=== PATIENT | female | born 1995 ===

== ENCOUNTER 2017-12-23 14:40 | Inpatient (IN) ==
--- OUTSIDE RECORDS SUMMARY | 2017-12-23 14:45 | External Medical Summary | Continuity of Care Document ---
:1995 Author Organization [facility] Address [address] [place], [place] [id number] Phone Allergies, Adverse Reactions, Alerts Substance Reaction Severity Status No Known Drug Allergies Unknown Active Medications Medication Instructions Dosage Effective Dates Status Comments (start - stop) 28 mg take 1 tablet by Not Available - Active iron-800 mcg oral route every tablet day Problems Condition Effective Dates (start - stop) Clinical Status Oth related conditions, - third trimester Encounter for suprvsn of normal - , third trimester 28 weeks gestation of - Oth viral diseases complicating - , second trimester Encounter for suprvsn of normal - , second trimester 25 weeks gestation of - Abnormal glucose complicating - 30 weeks gestation of - Herpes Simplex Virus Active Procedures Procedure Date OB Visit No Charge Infct antign, chlamydia trac, ampl Neisseria Gonorrhea, Amplified DNA Results Test Name Date and Time Measure Units Reference Range Abnormal Flag Comments Panel Description: CBC With Differential/Platelet WBC 10:22:00 9.7 x10E3/uL 3.4-10.8 RBC 10:22:00 3.94 x10E6/uL 3.77-5.28 Hemoglobin 10:22:00 11.8 g/dL 11.1-15.9 Hematocrit 10:22:00 36.3 % 34.0-46.6 MCV 10:22:00 92 fL 79-97 MCH 10:22:00 29.9 pg 26.6-33.0 MCHC 10:22:00 32.5 g/dL 31.5-35.7 RDW 10:22:00 13.1 % 12.3-15.4 Platelets 10:22:00 268 x10E3/uL 150-379 Neutrophils 10:22:00 61 % Not Estab. Lymphs 10:22:00 32 % Not Estab. Monocytes 10:22:00 5 % Not Estab. Eos 10:22:00 2 % Not Estab. Basos 10:22:00 0 % Not Estab. Immature Cells 10:22:00 Neutrophils (Absolute) 10:22:00 5.9 x10E3/uL 1.4-7.0 Lymphs (Absolute) 10:22:00 3.1 x10E3/uL 0.7-3.1 Monocytes(Absolute) 10:22:00 0.5 x10E3/uL 0.1-0.9 Eos (Absolute) 10:22:00 0.2 x10E3/uL 0.0-0.4 Baso (Absolute) 10:22:00 0.0 x10E3/uL 0.0-0.2 Immature Granulocytes 10:22:00 0 % Not Estab. Immature Grans (Abs) 10:22:00 0.0 x10E3/uL 0.0-0.1 NRBC 10:22:00 Hematology Comments: 10:22:00 Panel Description: Glucose [Mass/volume] in Serum or Plasma --1 hour post 50 g glucose PO Gestational Diabetes Screen 10:22:00 156 mg/dL 65-135 H Panel Description: Bacteria identified in Urine by Culture Urine Culture, Routine 10:49:00 Final report Result 1 10:49:00 No growth Panel Description: GC/CT Amplified Probe Chlamydia Trachomatis RNA, TMA 10:31:46 Negative Negative N Neisseria Gonorrhoeae RNA, TMA 10:31:46 Negative Negative N Advance Directives Directive Yes / No Effective Date File Name Unknown Encounters Encounter Practice Location Reason(s) Diagnoses Date Provider Care Team Description For Visit Members Associates [facility] Abnormal glucose October- Mack Referring In Womens complicating 1-201 Shae. Provider: Jaylene ALEXANDER, [email or web address] weeks 8 700 Shae Mack [address] gestation of Medical K, 700 1522, [facility] [place], , [facility] [place], 120, [place] 120, [id number], [place], [place], [place], tel:[phone]. , [place]. tel: tel: [phone] Associates Jorge Oth Apr-2 Mack In Womens related conditions, 6-201 Shae. Jaylene ALEXANDER, third 8 700 [address] [facility] 1522, [facility] normal , [place] Ontiveros, third [email or web address] 120, [id number], weeks gestation of [facility] [place], tel: [phone] , [place]. tel: [phone] Howard [place] Ot viral diseases Apr-0 Mack In Womens complicating 3-201 Shae. Jaylene ALEXANDER, , second 8 700 [address] [facility] 1522, for suprvsn [facility], normal , [place] Ontiveros, second [email or web address] 120, [id number], weeks gestation of [facility] [place], tel: [phone] , [place]. tel: [phone] Family History Family Member Diagnosis Age At Onset Mother Diabetes Sister Diabetes Father Alcoholism Sister Thyroid Disorder Mother Hypertension No family history of Venous Thrombosis No family history of Pulmonary Embolism Maternal Grandfather Stroke Maternal Grandmother Diabetes Maternal Grandmother Stroke Mother Breast Cancer Immunizations Vaccine Date Status Comments Tdap completed Source: New Immunization Record Influenza, injectable, completed Source: Other Provider quadrivalent, preservative free, 3 yrs or older Tdap completed Source: Other Provider Payers Payer name Insurance type Covered democrat ID Authorization(s) [place] [place] Medicaid MC [id number] [place] - Medicaid MC [id number] Social History Type Description Quantity Date Captured Alcohol Use Details No Caffeine Use Details Unknown Tobacco Use Status Unknown Smoking Status Never smoker Vital Signs Date / Height Weight BMI Pulse Blood Temperature Respiratory Body Head BMI Time: Rate Pressure Rate Surface Circumference percentile Area 30.4 -2017 7 9:14 kg/m AM eter (2) 167.70 30.6 110/74 -2018 lbs 7 mm[Hg] 9:30 kg/m AM eter (2) Chief Complaint And Reason For Visit Unknown Chief Complaint And Reason For Visit Reason For Referral Reason For Referral Unknown Plan Of Care Date Type Action Status Appointment Asia Ames BOOKED Date Type Problem Goal Intervention Status Start Date Unknown. History Of Present Illness Encounter Date Complaint History Of Present Illness This patient has no known history of present illness Functional Status Encounter Date Functional Assessment Cognitive Assessment Unknown Medications Administered Medication Instructions Dosage Effective Dates (start - stop) Status Comments Drug Treatment Unknown Instructions Date Instruction Additional Information gestational glucose lab screening
--- OUTSIDE RECORDS SUMMARY | 2017-12-23 14:45 | External Medical Summary | Encounter Summary ---
:1995 Author Organization [facility] Address [address] [place] [address] Care Team Providers Name Role Phone Matthew Tony MD Supervisor Weaving Encounter Details Date Type Department Care Team Description 09/29/2017 [facility] MULTIPLE TESTS Link, Onbase [place], [place] Social History Tobacco Use Types Packs/Day Years Used Date Never Smoker Smokeless Tobacco: Never Used Alcohol Use Drinks/Week oz/Week Comments No not while Sex Assigned at Date Recorded Not on file as of this encounter Plan of Treatment Not on fileas of this encounter Visit Diagnoses Not on filein this encounter
--- OUTSIDE RECORDS SUMMARY | 2017-12-23 14:45 | External Medical Summary | Clinical Summary ---
:1995 Author Organization [facility] Address [address] [place] [address] Care Team Providers Name Role Phone Matthew Tony MD Service Team Leader Allergies No Known Allergies Current Medications Prescription Sig. Disp. Refills Start Date End Date Status Vit-Fe Take 1 tablet by 90 tablet 3 06/17/2017 Active Fumarate-FA ( mouth daily. VITAMIN) 27-0.8 MG TABSIndications: 11 weeks gestation of Active Problems Patient Care Coordination Note Hosp: SV Dr. Dixon FOB: Lopez txr care from [place], records rec'ed Subchorionic hemorrhage at 17 wks HSV pos in [place] Currently Estimated Date of Delivery Comments Yes 01/02/2018 Based on Ultrasound No known active problems Resolved Problems Problem Noted Date Resolved Date 02/23/2015 05/21/2016 Encounters Date Type Specialty Care Team Description 09/29/2017 [facility] Link, Onbase from Last 3 Months Immunizations Name Dates Previously Given Next Due INFLUENZA IIV4 PF (FLULAVAL,FLUZONE,FLUARIX,AFLURIA 06/17/2017 QUAD) Tdap 03/08/2015 Family History Medical History Relation Name Comments Alcohol abuse Father Diabetes Maternal Grandfather Stroke Maternal Grandfather Diabetes Maternal Grandmother Stroke Maternal Grandmother Diabetes Mother Hypertension Mother Relation Name Status Comments Father Alive Maternal Grandfather Alive Maternal Grandmother Alive Mother Alive Social History Tobacco Use Types Packs/Day Years Used Date Never Smoker Smokeless Tobacco: Never Used Alcohol Use Drinks/Week oz/Week Comments No not while Currently Estimated Date of Delivery Comments Yes 01/02/2018 Based on Ultrasound Sex Assigned at Date Recorded Not on file Last Filed Vital Signs Vital Sign Reading Time Taken Blood Pressure 116/70 08/12/2017 9:35 AM 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 Pulse 82 07/23/2017 6:16 PM 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 Temperature 37.2 C (98.9 F) 07/23/2017 4:30 PM 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 Respiratory Rate 18 07/23/2017 6:16 PM 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 Oxygen Saturation 100% 07/23/2017 6:16 PM 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 Inhaled Oxygen Concentration - - Weight 72.6 kg (160 lb) 08/12/2017 9:35 AM 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 Height 157.5 cm (5' 2") 07/23/2017 4:30 PM 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 Body Mass Index 29.26 08/12/2017 9:35 AM 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 Plan of Treatment Health Maintenance Due Date Last Done Comments HPV Vaccines (1 of 3 - Female 11/27/2006 3-dose series) Varicella Vaccines (1 of 2 - 11/27/2008 2-dose adolescent series) MenB Vaccine (Bexsero) (1 of 2) 2011 Influenza Vaccine (#1) 2018 06/17/2017, 04/28/2011, 04/28/2011, Additional history exists CERVICAL CANCER SCREENING 06/17/2020 06/17/2017 DTaP,Tdap,and Td Vaccines (2 - 03/08/2025 03/08/2015 Td) Results Not on filefrom Last 3 Months
--- OUTSIDE RECORDS SUMMARY | 2017-12-23 14:45 | External Medical Summary | Continuity of Care Document ---
:1995 Author Organization [facility] Address [address] [place], [place] [id number] Phone Allergies, Adverse Reactions, Alerts Substance Reaction Severity Status No Known Drug Allergies Unknown Active Medications Medication Instructions Dosage Effective Dates Status Comments (start - stop) acyclovir 400 mg take 1 tablet - Active tablet (400MG) by ORAL route every 8 hours until delivery 28 mg take 1 tablet by Not Available - Active iron-800 mcg oral route every tablet day Problems Condition Effective Dates (start - stop) Clinical Status Other viral diseases complicating - , third trimester Encounter for suprvsn of normal - , third trimester 35 weeks gestation of - Oth viral diseases complicating - , second trimester Encounter for suprvsn of normal - , second trimester 25 weeks gestation of - Oth related conditions, - third trimester Encounter for suprvsn of normal - , third trimester 28 weeks gestation of - Abnormal glucose complicating - 30 weeks gestation of - Encounter for suprvsn of normal - , third trimester 38 weeks gestation of - Encounter for suprvsn of normal - , third trimester 36 weeks gestation of - Encounter for suprvsn of normal - , third trimester 33 weeks gestation of - Encounter for suprvsn of normal - , third trimester 37 weeks gestation of - Herpes Simplex Virus Active Procedures Procedure Date OB Visit No Charge Results Test Name Date and Time Measure Units Reference Range Abnormal Flag Comments Unknown Advance Directives Directive Yes / No Effective Date File Name Unknown Encounters Encounter Practice Location Reason(s) Diagnoses Date Provider Care Team Description For Visit Members Howard [place] Encounter for Willem-0 Mack In Womens suprvsn of normal 3-201 Shae. [facility], , third 8 700 [address] [email or web address] weeks Medical 1522, gestation of [facility], [place] Ontiveros, 120, [id number], [place], [place], tel:[phone] , [place]. tel: [phone] Howard [place] Encounter for Wei-2 Mack In Womens suprvsn of normal 6-201 Shae. [facility], , third 8 700 [address] [email or web address] weeks Medical 1522, gestation of [facility] [place] Ontiveros, 120, [id number], [place], [place], tel:[phone] , [place]. tel: [phone] Howard [place] Encounter for Wei-1 Mack In Womens suprvsn of normal 9-201 Shae. [facility], , third 8 700 [address] [email or web address] weeks Medical 1522, gestation of [facility], [place] Ontiveros, 120, [id number], [place], [place], tel:[phone] , [place]. tel: [phone] Howard [place] Other viral Wei-1 Mack In Womens diseases 2-201 Shae. [facility], complicating 8 700 PO [address] , third Medical 1522, trimesterEncounter [facility], for suprvsn of [place] Ontiveros, normal , 120, [id number], third [email or web address] [place], [place] weeks gestation of [place], tel:[phone] , [place]. tel: [phone] Howard [place] Encounter for May-2 Mack In Womens suprvsn of normal 9-201 Shae. [facility], , third 8 700 [address] [email or web address] weeks Medical 1522, gestation of [facility], [place] Ontiveros, 120, [id number], [place], tel:[phone] , [place]. tel: [phone] Howard [place] Abnormal glucose May-1 Mack Referring In Womens complicating 1-201 Shae. Provider: Health CATHERINE, [email or web address] weeks 8 700 Shae Mack PO Box gestation of Medical K, 700 1522, Center [facility] [address] Gianna, [facility] [place], 120, [place] 120, [id number], [place], [place], tel: [phone]. , [place]. tel: tel: [phone] Associates Jorge Oth Apr-2 Mack In Womens related conditions, 6-201 Shae. Health CATHERINE, third 8 700 PO [address] [facility] 1522, for suprvsdelmar of [place], normal , [place] Ontiveros, third [email or web address] 120, , [facility] [place], tel: [phone] , [place]. tel: [phone] Associates Jorge Ot viral diseases Apr-0 Mack In Womens complicating 3-201 Shae. Health CATHERINE, , second 8 700 PO [address] [facility] 1522, for [facility]delmar [facility], normal , [place] Ontiveros, second [email or web address] 120, , [facility] [place], tel: [phone] , [place]. tel: [phone] Family History Family Member Diagnosis Age At [...] [place] - Medicaid MC [id number] [place] - Medicaid [place] [id number] Social History Type Description Quantity Date Captured Alcohol Use Details No Caffeine Use Details Unknown Tobacco Use Status Unknown Smoking Status Never smoker Vital Signs Date / Height Weight BMI Pulse Blood Temperature Respiratory Body Head BMI Time: Rate Pressure Rate Surface Circumference percentile Area 172.00 31.4 120/71 2018 lbs 6 mm[Hg] 11:28 kg/m AM eter (2) Chief Complaint And [...] Treatment Unknown Instructions Date Instruction Additional Information labor signs group B strep screening gestational glucose lab screening
--- OUTSIDE RECORDS SUMMARY | 2017-12-23 14:46 | External Medical Summary | Continuity of Care Document ---
:1995 Author Organization [facility] Address [address] [place], [place] [address] Phone Allergies, Adverse Reactions, Alerts Substance Reaction Severity Status No Known Drug Allergies Unknown Active Medications Medication Instructions Dosage Effective Dates Status Comments (start - stop) 28 mg take 1 tablet by Not Available - Active iron-800 mcg oral route every tablet day Problems Condition Effective Dates (start - stop) Clinical Status Abnormal glucose complicating - 30 weeks gestation of - Oth viral diseases complicating - , second trimester Encounter for suprvsn of normal - , second trimester 25 weeks gestation of - Oth related conditions, - third trimester Encounter for suprvsn of normal - , third trimester 28 weeks gestation of - Encounter for suprvsn of normal - , third trimester 33 weeks gestation of - Herpes Simplex Virus Active Procedures Procedure Date Immuniz admnin, 1 vac, sngl/combo 19 Yrs + TDAP VACCINE >7 IM OB Visit No Charge Results Test Name Date and Time Measure Units Reference Range Abnormal Flag Comments Unknown Advance Directives Directive Yes / No Effective Date File Name Unknown Encounters Encounter Practice Location Reason(s) Diagnoses Date Provider Care Team Description For Visit Members Howard [place] Encounter for Mack In [facility] suprvsn of normal 9-201 [facility], , third 8 700 [address] [email or web address] weeks Medical 1522, gestation of [facility] [place] Ontiver[place], 120, [id number], [place], [place], tel:[phone] , [place]. tel:[phone] Howard [place] Abnormal glucose May- Mack Referring In Womens complicating 1-201 Shae. Provider: Health CATHERINE, [email or web address] weeks 8 700 Shae Mack PO Box gestation of Medical K, 700 1522, [address], [facility] [place], 120, [place] 120, [id number], Jorge [place], [place], tel: [phone]. , [place]. tel: tel: [phone] Associates Jorge Oth Apr-2 Mack In Womens related conditions, 6-201 Shae. Health [facility], third 8 700 PO Box [facility] 1522, [facility], normal , [place] Ontiveros, third 120, [id number], [facility] [place], tel: [phone] , [place]. tel: [phone] Associates Jorge Ot viral diseases Apr-0 Mack In Womens complicating 3-201 Shae. Health [facility], , second 8 700 PO Box [facility] 1522, for suprvsdelmar [facility], normal , [place] Ontiveros, second [email or web address] 120, , [facility] [place], tel: [phone] , [place]. tel: [phone] Family History Family Member Diagnosis Age At [...] Provider Payers Payer name Insurance type Covered alliance party ID Authorization(s) [employer] [place] - Medicaid MC [id number] [place] - Medicaid MC [id number] Social History Type Description Quantity Date Captured Alcohol Use Details No Caffeine Use Details Unknown Tobacco Use Status Unknown Smoking Status Never smoker Vital Signs Date / Height Weight BMI Pulse Blood Temperature Respiratory Body Head BMI Time: Rate Pressure Rate Surface Circumference percentile Area 166.70 30.4 113/2018 lbs 9 mm[Hg] 3:04 kg/m PM eter (2) Chief Complaint And Reason For [...]
--- OUTSIDE RECORDS SUMMARY | 2017-12-23 14:46 | External Medical Summary | Continuity of Care Document ---
:1995 Author Organization [facility] Address [address] [place], [place] [address] Phone Allergies, Adverse Reactions, Alerts Substance Reaction Severity Status No Known Drug Allergies Unknown Active Medications Medication Instructions Dosage Effective Dates Status Comments (start - stop) 28 mg take 1 tablet by Not Available - Active iron-800 mcg oral route every tablet day Problems Condition Effective Dates (start - stop) Clinical Status Ot viral diseases complicating - , second trimester Encounter for suprvsn of normal - , second trimester 25 weeks gestation of - Herpes Simplex Virus Active Procedures Procedure Date Initial OB Visit No Charge - 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 Results Test Name Date and Time Measure Units Reference Range Abnormal Flag Comments Unknown Advance Directives Directive Yes / No Effective Date File Name Unknown Encounters Encounter Practice Location Reason(s) Diagnoses Date Provider Care Description For Visit Team Members Associates Jorge Ot viral diseases Sep- Mack In [facility] 3-[facility] , second 8 700 [address], [place], [place], for suprvsn of [place] [id number], normal , [place] Ontiveros second [email or web address] 120, tel:[phone] weeks gestation of Jorge [address] [place], [id number] , [place]. tel:[phone] Family History Family Member Diagnosis Age At Onset Mother Diabetes Sister Diabetes Father Alcoholism Sister Thyroid Disorder Mother Hypertension No family history of Venous Thrombosis No family history of Pulmonary Embolism Maternal Grandfather Stroke Maternal Grandmother Diabetes Maternal Grandmother Stroke Mother Breast Cancer Immunizations Vaccine Date Status Comments Influenza, injectable, quadrivalent, completed Source: Other Provider preservative free, 3 yrs or older Tdap completed Source: Other Provider Payers Payer name Insurance type Covered constitution party ID Authorization(s) [employer] Plan Of [place] - Medicaid MC [id number] Social History Type Description Quantity Date Captured Alcohol Use Details No Caffeine Use Details Unknown Tobacco Use Status Never smoked tobacco Smoking Status Never smoker Non-Smoking Tobacco Use : No Details Available : No Details Available Details Vital Signs Date / Height Weight BMI Pulse Blood Temperature Respiratory Body Head BMI Time: Rate Pressure Rate Surface Circumference percentile Area 166.60 30.4 lbs 7 mm[Hg] 10:39 kg/m AM eter (2) 166.60 lbs mm[Hg] 10:39 AM Chief Complaint And Reason For Visit Unknown [...] Treatment Unknown Instructions Date Instruction Additional Information Unknown
--- OUTSIDE RECORDS SUMMARY | 2017-12-23 14:46 | External Medical Summary | Continuity of Care Document ---
:1995 Author Organization [facility] Address [address] [place], [place] [id number] Phone Allergies, Adverse Reactions, Alerts Substance Reaction Severity Status No Known Drug Allergies Unknown Active Medications Medication Instructions Dosage Effective Dates Status Comments (start - stop) 28 mg take 1 tablet by Not Available - Active iron-800 mcg oral route every tablet day Problems Condition Effective Dates (start - stop) Clinical Status Oth viral diseases complicating - , second trimester Encounter for suprvsn of normal - , second trimester 25 weeks gestation of - Oth related conditions, - third trimester Encounter for suprvsn of normal - , third trimester 28 weeks gestation of - Abnormal glucose complicating - 30 weeks gestation of - Herpes Simplex Virus Active Procedures Procedure Date Unknown Results Test Name Date and Time Measure Units Reference Range Abnormal Flag Comments Panel Description: Gestational Glucose Tolerance Glucose - Fasting 08:06:00 77 mg/dL 65-94 Glucose - 1 hour 08:06:00 149 mg/dL 65-179 Glucose - 2 hour 08:06:00 115 mg/dL 65-154 Glucose - 3 hour 08:06:00 90 mg/dL 65-139 Note: 08:06:00 Comment For diagnosis of gestational diabetes, at least two values must meetor exceed normal limits, which is based on 100 gm of oral glucosechallenge. Advance Directives Directive Yes / No Effective Date File Name Unknown Encounters Encounter Practice Location Reason(s) Diagnoses Date Provider Care Team Description For Visit Members Associates [place] Abnormal glucose Mack Referring In Womens complicating 1-201 Shae. Provider: Health PA, [email or web address] weeks 8 700 Shae Mack [address] Box gestation of Medical K, 700 15[address], [facility] [address] Gianna, [facility] [place], 120, [place] 120, [id number], [place], [place], [place], tel:[phone]. , [place]. tel: tel: [phone] Associates Jorge Apr-2 Mack In Womens 7-201 Shae. [facility], 8 700 [address] Medical [address], [place], , [place], 120, [id number], [place], [place], tel:[phone] , [place]. tel: [phone] Associates Jorge Oth Apr-2 Mack In Womens related conditions, 6-201 Shae. [facility], third 8 700 [facility], [facility] normal , [place] Ontiveros, third 120, [id number], [facility] [place], tel:[phone] , [place]. tel: [phone] Associates Jorge Oth viral diseases Apr-0 Mack In Womens complicating 3-201 Shae. [facility], , second 8 700 PO Box [facility] Medical 1522, for suprvsn of [facility], normal , [place] Ontiveros, second [email or web address] 120, [id number], [facility] [place], tel:[phone] , [place]. tel: [phone] Family History Family Member Diagnosis Age At [...] Provider Payers Payer name Insurance type Covered green party ID Authorization(s) [place] Plan [place] - Medicaid MC [id number] [facility] Plan Of [place] - Medicaid MC [id number] Social History Type Description Quantity Date Captured Unknown Vital Signs Date / Height Weight BMI Pulse Blood Temperature Respiratory Body Head BMI Time: Rate Pressure Rate Surface Circumference percentile Area Unknown Chief Complaint And Reason For Visit Unknown [...]
[2017-12-23] MEDS ORDERED: METHYLERGONOVINE 0.2 MG/ML INJECTION IM PRN (14:58)
[2017-12-23] MEDS ORDERED: ACETAMINOPHEN 500 MG TABLET PO PRN ×2 (14:58→22:15)
[2017-12-23] MEDS ORDERED: CARBOPROST 250 MCG/ML INJECTION IM PRN (14:58)
[2017-12-23] MEDS ORDERED: LIDOCAINE 1% (10mg/ml) 2mL INJ PF SDV ID PRN (14:58)
[2017-12-23] MEDS ORDERED: MAG-AL + SIM ORAL LIQUID 30ml PO PRN ×2 (14:58→22:15)
[2017-12-23] MEDS ORDERED: CALCIUM CARBONATE Chewable 500mg TABLET PO PRN ×2 (14:58→22:15)
[2017-12-23] MEDS: LR 1,000 ML IV PRN ×3 (15:35→20:16)
[2017-12-23] MEDS ORDERED: D5LR 1,000 ML IV SCH (16:30)
--- NOTE | 2017-12-23 17:07 | Progress Note ---
OB PP Progress Note Free Text - Date Date: 12/23/17 - Progress Note Progress Note: Pt denies feeling HSV outbreak. Has been taking acyclovir. SSE performed, no lesions seen. Clear amniotic fluid. Occ ctxs, no pattern. FHTs Cat 1. Will cont to monitor, plan oxytocin if labor not starting in the next hour or so. Q&A
[2017-12-23 17:23] VITALS: BMI 31.6
[2017-12-23] MEDS ORDERED: OXYTOCIN DRIP 30 UNIT/500 ML ML IV PRN (18:19)
[2017-12-23] MEDS ORDERED: D5LR 1,000 ML IV PRN (18:19)
--- NOTE | 2017-12-23 20:35 | Anesthesia Preoperative Report ---
Anesthesia Epidural/Spinal Rec - Date and Time Date: 12/23/17 Procedure: Labor Epidural Plan: Epidural - Vital Signs /Para: P:1 Heart Rate: 142 - Medictaions & Allergies Inpatient Medications: Current Medications Acetaminophen (Tylenol) 500 - 1,000 mg PO Q4H PRN PRN Reason: Pain Al Hydroxide/Mg Hydroxide (Maalox Plus) 30 ml PO Q3H PRN PRN Reason: Indigestion Calcium Carbonate (Tums) 500 - 1,000 mg PO Q2H PRN PRN Reason: Indigestion Carboprost Tromethamine (Hemabate) 250 mcg IM O PRN PRN Reason: .Downtime Lactated Ringer's (Lactated Ringers) 1,000 mls @ 999 mls/hr IV .Q1H1M PRN Last Admin: 12/23/17 16:42 Dose: 999 mls/hr Dextrose/Lactated Ringer's (Dextrose 5%-Lactated Ringers) 1,000 mls @ 125 mls/ hr IV .Q8H SARTHAK Last Admin: 12/23/17 16:36 Dose: 125 mls/hr Dextrose/Lactated Ringer's (Dextrose 5%-Lactated Ringers) 1,000 mls @ 125 mls/ hr IV .Q8H PRN PRN Reason: Labor Oxytocin (Pitocin Drip) 30 unit in 500 mls @ 2 mls/hr IV .Q24H PRN; Protocol PRN Reason: Induction/Augmentation Last Admin: 12/23/17 18:10 Dose: 2 mls/hr Lidocaine HCl (Xylocaine-Mpf 1% Vial) 0.2 mg ID O PRN PRN Reason: IV Start Methylergonovine Maleate (Methergine) 0.2 mg IM O PRN Misoprostol (Cytotec) 800 mcg WA ONCE PRN Allergies/Adverse Reactions: Allergies Allergy/AdvReac Type Severity Reaction Status Date / Time No Known Allergies Allergy Verified 12/21/17 09:48 - Home Medications Home Medications: Home Medications Medication Instructions Recorded Confirmed Type Acyclovir 1 tab PO TID 12/21/17 12/23/17 History Vit Calc,Iron,Folic 1 each PO DAILY 12/21/17 12/23/17 History [ Vitamins] - Medical History Other History: Reports: Now - Surgical History HEENT Surgeries: Reports: Oral Surgery (wisdom teeth removed as a teenager) Reproductive Surgery/Treatment: DENIES: Section Anesthesia Reactions: None Hx Family Anesthesia Reaction: No History of Motion Sickness: No - Social History Smoking Status: Former smoker Second Hand Exposure: No Substance Use Type: does not use Alcohol Intake Frequency: does not drink Hx Chewing Tobacco Use: No - Pertinent Findings Lab Data: CBC and BMP 12/23/17 15:09 - Physical Exam Respiratory Exam: lungs clear, bilateral breath sounds equal Cardiovascular Exam: regular rate and rhythm - Airway Assessment Mallampati Score: II TMD: 3 Fingerbreadths Neck Extension: good Overall Assessment: no airway concerns - ASA ASA Score: 2 - Discussion Discussion: Discussed risks/options/alternatives of anesthesia and questions answered. Patient consents. Nursing pain assessment noted. Attestation Statement: Prior to the delivery of any anesthetic medication, I examined the patient, developed the plan, obtained the patient's consent and discussed the risk and benefits of the procedure with the patient/guardian.
[2017-12-23] MEDS ORDERED: DiphenhydrAMINE 25 MG CAPSULE PO PRN (22:15)
[2017-12-23] MEDS ORDERED: HYDROCODONE/APAP 5mg/325mg TABLET PO PRN (22:15)
[2017-12-23] MEDS ORDERED: HYDROCORTISONE 2.5% CREAM 30gm RECTALLY PRN (22:15)
[2017-12-23] MEDS: IBUPROFEN 800 MG TABLET PO PRN (22:17)
--- NOTE | 2017-12-24 07:41 | Labor and Delivery Note ---
This is a delivery note for a patient of Dr. Mack. DATE: 12/23/2017 Mrs. Ames presented with premature rupture of membranes at about 1 o'clock this afternoon. She presented here about 2 o'clock. By 6:00 p.m. she was not having any regular contractions so we started oxytocin. She then progressed very well and rapidly in first stage of labor. She began to push at the complete and +3 presentation. She pushed for two contractions delivering the head in the OA presentation. Baby was bulb suctioned on the perineum. There was no nuchal cord. With a further push baby was delivered in total. Baby was then further bulb suctioned and placed on mother's abdomen. After just over 2 minutes the cord was doubly clamped. It was cut by the baby's father Lopez. This is a liveborn male with Apgars of 8/9/9. He weighed 5 pounds 11.1 ounces. After about 20 minutes the placenta delivered spontaneously intact. It had a normal configuration and normal-appearing three- vessel cord. The perineum was intact. There were bilateral superficial periurethral lacerations. These were hemostatic and were not repaired. Total blood loss was approximately 300 cc. At the time of this dictation mother and baby are doing well. [facility]
--- NOTE | 2017-12-24 08:07 | OB/GYN Progress Note ---
OB-PP Progress Note - General PPD1 Maternal Group B Strep: Negative Maternal Rh: positive Maternal Rubella Status: Immune - Subjective Date: 12/24/17 Lochia: Minimal Pain: controlled Voiding: voiding - Objective Vital Signs: Last Vital Signs Temp 98.1 F 12/24/17 06:20 Pulse 50 L 12/24/17 06:20 Resp 16 12/24/17 06:20 BP 114/65 12/24/17 06:20 Pulse Ox 100 12/24/17 06:20 Urine Output: good General: alert and oriented Abdomen: fundus firm, non-tender Extremities: non-tender Laboratory: Laboratory Results - last 24 hr 12/23/17 15:09 WBC 9.4 RBC 4.09 Hgb 12.5 Hct 37.5 MCV 91.7 MCH 30.6 MCHC 33.3 RDW Std Deviation 44.9 Plt Count 253 MPV 10.2 - Assessment Assessment: - Plan Plan: routine care Expected date of discharge: 12/25/17
[2017-12-24] MEDS: IBUPROFEN 800 MG TABLET PO PRN ×2 (08:18→18:22)
[2017-12-24] MEDS: DOCUSATE CALCIUM 240 MG CAPSULE PO SCH (08:19)
[2017-12-24] MEDS: PRENATAL VITAMIN TABLET PO SCH (08:19)
[2017-12-25 01:58] VITALS: RESP 18; O2SAT 98
--- NOTE | 2017-12-25 08:30 | OB/GYN Progress Note ---
OB-PP Progress Note - General PPD2 Maternal Group B Strep: Negative Maternal Rh: positive Maternal Rubella Status: Immune - Subjective Date: 12/25/17 Lochia: Minimal Pain: controlled Voiding: voiding - Objective Vital Signs: Last Vital Signs Temp 98.1 F 12/25/17 01:56 Pulse 53 L 12/25/17 01:56 Resp 18 12/25/17 01:56 BP 114/64 12/25/17 01:56 Pulse Ox 98 12/25/17 01:56 Urine Output: good General: alert and oriented Abdomen: fundus firm, non-tender - Assessment Assessment: - Plan Plan: routine care, discharge home, continue PNV
[2017-12-25 10:38] VITALS: BP 115/72; PULSE 117; TEMP 97.9
[2017-12-25] MEDS: DOCUSATE CALCIUM 240 MG CAPSULE PO SCH (10:46)
[2017-12-25] MEDS: PRENATAL VITAMIN TABLET PO SCH (10:46)
== END 2017-12-25 14:38 | disposition home or self-care (01) | DRG 775 ==
LOC: OBOBS 14:40 → MC 14:41
PROVIDERS: ADMIT Obstetrics & Gynecology; ATTEND Obstetrics & Gynecology